=== PATIENT | female | born 1960 | race Caucasian/White ===

== ENCOUNTER 2018-08-06 10:12 | Day surgery (SDC) | payer OTHER ==
[~2018-08-06] VITALS: Ht 162.6 cm; Wt 49.3 kg
[2018-08-06 10:48] VITALS: BP 101/69
[2018-08-06] MEDS ORDERED: SODIUM CHLORIDE 0.9% 1,000 ML IV SCH (11:00)
[2018-08-06] MEDS ORDERED: LIDOCAINE-MPF 1%, 5ML ONE (11:01)
[2018-08-06] MEDS ORDERED: MIDAZOLAM 1 MG/ML, 5ML ONE ×2 (12:01→13:45)
[2018-08-06] MEDS ORDERED: FLUMAZENIL 0.1 MG/1 ML, 5ML ONE (12:01)
[2018-08-06] MEDS ORDERED: FENTANYL PF 100 MCG/2ML ONE ×2 (12:01→13:45)
[2018-08-06] MEDS ORDERED: NALOXONE 1 MG/ML, 2ML ONE (12:02)
== END 2018-08-06 16:00 | disposition home or self-care (01) ==
LOC: OUT 10:12
PROVIDERS: ATTEND Family Medicine
DX: Z45.2 Encounter for adjustment and management of vascular access device (principal); Z90.3 Acquired absence of stomach [part of]; E03.9 Hypothyroidism, unspecified; F32.9 Major depressive disorder, single episode, unspecified; Z90.710 Acquired absence of both cervix and uterus; Z98.890 Other specified postprocedural states; Z87.39 Personal history of other diseases of the musculoskeletal system and connective tissue; Z86.718 Personal history of other venous thrombosis and embolism; Z90.13 Acquired absence of bilateral breasts and nipples; Z96.651 Presence of right artificial knee joint; Z72.89 Other problems related to lifestyle; Z88.8 Allergy status to other drugs, medicaments and biological substances
CPT/HCPCS: 37193; 99156; 99157; C1751; C1769; C1773; C1887; C1894; J2250; J3010; J7030; J2310

== ENCOUNTER 2018-10-21 08:19 | Day surgery (SDC) | payer OTHER ==
[~2018-10-21] VITALS: Ht 162.6 cm; Wt 49.4 kg
[2018-10-21] MEDS ORDERED: SODIUM CHLORIDE 0.9% 1,000 ML IV SCH (08:50)
[2018-10-21 09:46] VITALS: BP 123/79
[2018-10-21] MEDS ORDERED: SUCR1TAB PO (09:56)
[2018-10-21] MEDS ORDERED: FEXO180T15 PO (09:56)
[2018-10-21] MEDS ORDERED: RIVA10TA PO (09:56)
[2018-10-21] MEDS ORDERED: METO10TA2 PO (09:56)
[2018-10-21] MEDS ORDERED: LEVO175T5 PO (09:56)
[2018-10-21] MEDS ORDERED: ZALE10CA PO (09:56)
[2018-10-21] MEDS ORDERED: REMERON PO (09:56)
[2018-10-21] MEDS ORDERED: FLUMAZENIL 0.1 MG/1 ML, 5ML ONE (10:26)
[2018-10-21] MEDS ORDERED: NALOXONE 1 MG/ML, 2ML ONE (10:26)
[2018-10-21] MEDS ORDERED: FENTANYL PF 100 MCG/2ML ONE (10:26)
[2018-10-21] MEDS ORDERED: MIDAZOLAM 1 MG/ML, 5ML ONE (10:26)
[2018-10-21] MEDS ORDERED: LIDOCAINE-MPF 1%, 5ML ONE (10:27)
== END 2018-10-21 14:00 | disposition home or self-care (01) ==
LOC: OUT 08:19
PROVIDERS: ATTEND Family Medicine
DX: Z45.2 Encounter for adjustment and management of vascular access device (principal); Z86.718 Personal history of other venous thrombosis and embolism; E53.8 Deficiency of other specified B group vitamins; E03.9 Hypothyroidism, unspecified; F32.9 Major depressive disorder, single episode, unspecified; Z90.3 Acquired absence of stomach [part of]; Z98.0 Intestinal bypass and anastomosis status; Z98.890 Other specified postprocedural states
CPT/HCPCS: 37193; 74150; 99156; 99157; C1751; C1769; C1894; J2250; J3010; J7030; J2310

== ENCOUNTER 2020-04-17 10:02 | Inpatient (IN) | payer OTHER ==
[~2020-04-17] VITALS: Ht 162.6 cm; Wt 46.7 kg
[~2020-04-17 10:02] MED LIST: FEXO180T15 PO; LEVO175T5 PO; METO10TA2 PO; REMERON PO; RIVA10TA2 PO; SUCR1TAB PO; ZALE10CA PO
[2020-04-17] MEDS ORDERED: DOCUSATE 100 MG CAPSULE PO PRN (10:30)
[2020-04-17] MEDS ORDERED: ACETAMINOPHEN 325 MG TABLET PO PRN (10:30)
[2020-04-17 11:30] VITALS: BP 137/84
[2020-04-17 12:07] LABS: CHOLESTEROL, TOTAL 220 mg/dL (140-239)
[2020-04-17 13:10] LABS: CHOL/HDL RATIO 2.6; FREE T4 (FREE THYROXINE) 1.41 ng/dL (0.76-1.46); HDL CHOL % 39 % (28-40); HDL CHOLESTEROL (DIRECT) 86 mg/dL (40-60); LDL CHOLESTEROL,CALCULATED 122 mg/dL (54-169); LDL/HDL RATIO 1.4 (0.5-3.0); TRIGLYCERIDES 60 mg/dL (50-200); VLDL CHOLESTEROL 12 mg/dL (0-25)
[2020-04-17] MEDS ORDERED: PLEASE ENTER HEIGHT AND WEIGHT MC SCH (14:00)
[2020-04-17] MEDS: DIVALPROEX 500 MG TAB.ER.24H PO SCH ×2 (14:01→21:51)
[2020-04-17] MEDS: OLANZAPINE ODT 10MG PO SCH (14:01)
[2020-04-17] MEDS ORDERED: ZALE5CAP PO (14:17)
[2020-04-17] MEDS ORDERED: TRAZ-175 PO (14:18)
[2020-04-17] MEDS ORDERED: BREX1TAB PO (14:19)
[2020-04-17] MEDS: OLANZAPINE 5 MG TABLET PO PRN (16:03)
[2020-04-17 20:14] VITALS: BP 109/73
[2020-04-18] MEDS: LEVOTHYROXINE 175 MCG TABLET PO SCH (09:56)
[2020-04-18] MEDS: OLANZAPINE ODT 10MG PO SCH (10:22)
[2020-04-18] MEDS: DIVALPROEX 500 MG TAB.ER.24H PO SCH (10:23)
[2020-04-18 13:06] LABS: BASOPHILS # (AUTO) 0.03 x10^3/uL (0-0.1); BASOPHILS % (AUTO) 1 % (0-1); EOSINOPHILS # (AUTO) 0.06 x10^3/uL (0-0.4); EOSINOPHILS % (AUTO) 1 % (1-7); LYMPHOCYTES # (AUTO) 1.76 x10^3/uL (1-3.4); LYMPHOCYTES % (AUTO) 31 % (22-44); MD NO; MEAN CORPUSCULAR HEMOGLOBIN 30.7 pg (27.0-34.8); MEAN CORPUSCULAR HGB CONC 32.6 g/dL (32.4-35.8); MEAN CORPUSCULAR VOLUME 94.1 fL (80-100); MEAN PLATELET VOLUME 8.8 fL (7.4-10.4); MONOCYTES # (AUTO) 0.57 x10^3/uL (0.2-0.8); MONOCYTES % (AUTO) 10 % (2-9); NEUTROPHILS # (AUTO) 3.26 x10^3/uL (1.8-6.8); NEUTROPHILS % (AUTO) 57 % (42-75); PLATELET COUNT 266 x10^3/uL (130-400); RED BLOOD COUNT 4.97 x10^6/uL (3.82-5.3); RED CELL DISTRIBUTION WIDTH 14.1 % (9.6-15.2)
[2020-04-18 13:17] LABS: ALANINE AMINOTRANSFERASE 23 U/L (12-78); ALBUMIN 3.6 g/dL (3.4-5.0); ANION GAP 5 mmol/L (5-15); CHLORIDE 108 mmol/L (98-107); CREATININE 0.93 mg/dL (0.55-1.02)
[2020-04-18 13:19] LABS: ALKALINE PHOSPHATASE 105 U/L (45-117); BILIRUBIN,TOTAL 0.3 mg/dL (0.2-1.0); TOTAL PROTEIN 7.7 g/dL (6.4-8.2)
[2020-04-18] MEDS: OLANZAPINE 5 MG TABLET PO PRN (14:44)
[2020-04-18 16:44] VITALS: BP 142/72
[2020-04-18 19:15] VITALS: BP 144/90
[2020-04-18] MEDS: DIVALPROEX 250 MG TAB.ER.24H PO SCH (19:28)
[2020-04-18] MEDS ORDERED: OLANZAPINE 10 MG INJ IM ONE ×2 (20:04→20:30)
[2020-04-19] MEDS: LEVOTHYROXINE 175 MCG TABLET PO SCH (06:18)
[2020-04-19 08:00] VITALS: BP 122/85
[2020-04-19] MEDS: OLANZAPINE ODT 10MG PO SCH (08:57)
[2020-04-19] MEDS: DIVALPROEX 250 MG TAB.ER.24H PO SCH ×2 (08:58→20:52)
[2020-04-19 19:03] VITALS: BP 156/87
[2020-04-19] MEDS: OLANZAPINE 5 MG TABLET PO PRN (20:51)
[2020-04-20] MEDS: LEVOTHYROXINE 150 MCG TABLET PO SCH (06:04)
[2020-04-20 07:36] VITALS: BP 166/98
[2020-04-20] MEDS: DIVALPROEX 250 MG TAB.ER.24H PO SCH ×2 (08:53→20:33)
[2020-04-20] MEDS: MULTIVITAMINS/MINERALS TABLET PO SCH (08:54)
[2020-04-20] MEDS: OLANZAPINE ODT 10MG PO SCH (08:54)
[2020-04-20] MEDS: OLANZAPINE 5 MG TABLET PO PRN (14:28)
[2020-04-20 19:50] VITALS: BP 94/68
[2020-04-21] MEDS: LEVOTHYROXINE 150 MCG TABLET PO SCH (06:11)
[2020-04-21 07:30] VITALS: BP 138/86
[2020-04-21] MEDS: DIVALPROEX 250 MG TAB.ER.24H PO SCH ×2 (10:49→21:00)
[2020-04-21] MEDS: OLANZAPINE ODT 10MG PO SCH (10:50)
[2020-04-21] MEDS: MULTIVITAMINS/MINERALS TABLET PO SCH (10:52)
[2020-04-21] MEDS: POLYETHYLENE GLYCOL 17 GM PACKET PO PRN (21:11)
[2020-04-21 21:30] VITALS: BP 171/86
[2020-04-22] MEDS: LEVOTHYROXINE 150 MCG TABLET PO SCH (06:07)
[2020-04-22 07:54] VITALS: BP 130/83
[2020-04-22] MEDS: DIVALPROEX 250 MG TAB.ER.24H PO SCH ×2 (09:00→20:52)
[2020-04-22] MEDS: MULTIVITAMINS/MINERALS TABLET PO SCH (10:20)
[2020-04-22] MEDS: OLANZAPINE ODT 10MG PO SCH (10:21)
[2020-04-22 19:16] VITALS: BP 114/77
[2020-04-22] MEDS ORDERED: OLANZAPINE 10 MG TABLET ONE (20:56)
[2020-04-22] MEDS: POLYETHYLENE GLYCOL 17 GM PACKET PO PRN (21:13)
[2020-04-23] MEDS: LEVOTHYROXINE 150 MCG TABLET PO SCH (05:54)
[2020-04-23 07:39] VITALS: BP 137/89
[2020-04-23] MEDS: MULTIVITAMINS/MINERALS TABLET PO SCH (08:11)
[2020-04-23] MEDS: DIVALPROEX 250 MG TAB.ER.24H PO SCH ×2 (08:12→21:07)
[2020-04-23 19:40] VITALS: BP 126/89
[2020-04-23] MEDS: OLANZAPINE ODT 10MG PO SCH (21:07)
[2020-04-23] MEDS: POLYETHYLENE GLYCOL 17 GM PACKET PO PRN (21:19)
[2020-04-23] MEDS: OLANZAPINE 5 MG TABLET PO PRN (23:28)
[2020-04-24] MEDS: LEVOTHYROXINE 150 MCG TABLET PO SCH (05:46)
[2020-04-24 06:20] LABS: MICROSCOPIC AUTO
[2020-04-24 07:44] VITALS: BP 123/80
[2020-04-24] MEDS: MULTIVITAMINS/MINERALS TABLET PO SCH (10:07)
[2020-04-24] MEDS: DIVALPROEX 250 MG TAB.ER.24H PO SCH ×2 (10:07→20:28)
[2020-04-24] MEDS ORDERED: OLAN10TA7 PO (13:36)
[2020-04-24] MEDS ORDERED: LEVO150T PO (13:36)
[2020-04-24] MEDS ORDERED: DIVA250T PO (13:36)
[2020-04-24] MEDS ORDERED: MULT-484 PO (13:36)
[2020-04-24] MEDS ORDERED: CLON0.1T22 PO (13:36)
[2020-04-24 20:00] VITALS: BP 136/95
[2020-04-24] MEDS: OLANZAPINE ODT 10MG PO SCH ×2 (20:28→20:29)
[2020-04-25] MEDS: OLANZAPINE 5 MG TABLET PO PRN (02:10)
[2020-04-25] MEDS: LEVOTHYROXINE 150 MCG TABLET PO SCH (06:30)
[2020-04-25] MEDS: MULTIVITAMINS/MINERALS TABLET PO SCH (08:27)
[2020-04-25] MEDS: DIVALPROEX 250 MG TAB.ER.24H PO SCH (08:27)
== END 2020-04-25 10:12 | disposition home or self-care (01) | DRG 885 ==
LOC: 3E 11:05
PROVIDERS: ADMIT Psychiatry & Neurology Psychosomatic Medicine; ATTEND Psychiatry & Neurology Psychosomatic Medicine
DX: F31.2 Bipolar disorder, current episode manic severe with psychotic features (principal); F43.10 Post-traumatic stress disorder, unspecified; G47.00 Insomnia, unspecified; E03.9 Hypothyroidism, unspecified; Z85.028 Personal history of other malignant neoplasm of stomach; Z79.899 Other long term (current) drug therapy; Z83.3 Family history of diabetes mellitus; Z79.890 Hormone replacement therapy
CPT/HCPCS: 36415; 70450; 71045; 80053; 80061; 81001; 82607; 83735; 84439; 84443; 85025; 93005

== ENCOUNTER 2020-10-08 17:49 | Emergency (ER) | payer OTHER ==
[~2020-10-08] VITALS: Ht 162.6 cm; Wt 42.0 kg
[~2020-10-08 17:49] MED LIST changes: +BREX1TAB PO; +CLON0.1T22 PO; +DIVA250T PO; +LEVO150T PO; +MULT-484 PO; +OLAN10TA7 PO; +TRAZ-175 PO; +ZALE5CAP PO
[2020-10-08 18:22] VITALS: BP 164/104
--- NOTE | 2020-10-08 18:24 | NUR ---
pt very manic. pt unable to hear. pt also unable to speak asl or hold conversation. attempt to use tranlsater cyracom unsuccessful. pt changed to gown. urine sample obtained. lab at bedside. able to communicate w pt w short and direct notes. vss, hypertensive. report to mouna bullock. as
[2020-10-08 18:33] LABS: BASOPHILS % (AUTO) 1 % (0-1); EOSINOPHILS % (AUTO) 1 % (1-7); LYMPHOCYTES % (AUTO) 33 % (22-44); MEAN CORPUSCULAR HGB CONC 33.2 g/dL (32.4-35.8); MEAN PLATELET VOLUME 8.9 fL (7.4-10.4); MONOCYTES % (AUTO) 9 % (2-9); NEUTROPHILS % (AUTO) 57 % (42-75); PLATELET COUNT 267 x10^3/uL (130-400); RED BLOOD COUNT 4.26 x10^6/uL (3.82-5.3); RED CELL DISTRIBUTION WIDTH 14.4 % (9.6-15.2)
[2020-10-08 18:35] LABS: MD NO
[2020-10-08 18:40] LABS: MICROSCOPIC AUTO
[2020-10-08 18:45] LABS: ALBUMIN 3.5 g/dL (3.4-5.0); ANION GAP 6 mmol/L (5-15); CALCIUM 8.9 mg/dL (8.5-10.1); CHLORIDE 108 mmol/L (98-107)
[2020-10-08 18:50] LABS: AMPHETAMINE SCREEN, URINE Negative (Negative); BARBITURATE SCREEN, URINE Negative (Negative); BENZODIAZEPINE SCREEN, URINE Negative (Negative); CANNABINOID SCREEN, URINE Negative (Negative); COCAINE SCREEN, URINE Negative (Negative); METHADONE SCREEN, URINE Negative (Negative); OPIATE SCREEN, URINE Negative (Negative)
[2020-10-08 18:58] LABS: CREATININE 0.58 mg/dL (0.55-1.02)
[2020-10-08 19:01] LABS: SALICYLATE LEVEL < 1.7 mg/dL (2.8-20.0)
--- NOTE | 2020-10-08 19:10 | NUR ---
BEDSIDE REPORT TO CORA PEARSON.
[2020-10-08] MEDS ORDERED: ZIPRASIDONE 20 MG INJ IM ONE ×2 (19:23→19:30)
--- NOTE | 2020-10-08 20:06 | NUR ---
PT SPEECH RAPID, PRESSURED, LABILE, TANGENTIAL. PT MOOD QUITE LABILE. COOPERATIVE AT TIMES. PT UP TO RESTROOM. GEODON ADMINISTERED. SITTER AT BEDSIDE AT THIS TIME.
--- NOTE | 2020-10-08 21:28 | NUR ---
PT DRESSED FOR TRANSFER, SITTER REMAINS IN DIRECT LINE OF SIGHT. PT PROVIDED WITH SALTINES PER REQUEST. REPORT CALLED TO DR. EDISON CHILEL RECEIVING.
== END 2020-10-08 22:25 ==
LOC: ED 22:00
DX: F22 Delusional disorders (principal)
CPT/HCPCS: 36415; 80048; 80299; 80307; 80320; 80329; 81001; 82040; 85025; 87086; 96372; 99285; J3486; G0480